=== PATIENT | female | born 1980 | race Asian ===

== ENCOUNTER 2017-02-07 17:35 | Emergency (ER) | payer OTHER ==
[~2017-02-07] VITALS: Ht 170.2 cm; Wt 77.6 kg
[2017-02-07 19:21] LABS: BASOPHIL % 0.6 % (0-2); PLATELET COUNT 238 x10^3mcL (130-400)
[2017-02-07 19:26] LABS: RED CELL DISTRIBUTION WIDTH 14.9 % (11.5-14.5)
[2017-02-07 20:29] VITALS: BP 100/55
== END 2017-02-07 20:29 | disposition home or self-care (01) ==
LOC: ED 17:35
PROVIDERS: Emergency Medicine
DX: O20.0 Threatened abortion (principal); Z3A.01 Less than 8 weeks gestation of pregnancy
CPT/HCPCS: 36415

== ENCOUNTER 2017-02-09 09:28 | Emergency (ER) | payer OTHER ==
[2017-02-09 12:54] VITALS: BP 109/71
== END 2017-02-09 12:54 | disposition home or self-care (01) ==
LOC: ED 09:28
DX: O20.0 Threatened abortion (principal); Z3A.01 Less than 8 weeks gestation of pregnancy

== ENCOUNTER 2017-04-30 02:56 | Emergency (ER) | payer OTHER ==
[2017-04-30 03:23] LABS: microscopic required? NO
[2017-04-30 03:38] LABS: urine erythrocyte NEGATIVE (NEGATIVE)
[2017-04-30 04:25] VITALS: BP 115/75
== END 2017-04-30 04:25 | disposition home or self-care (01) ==
LOC: ED 02:56
PROVIDERS: Emergency Medicine
DX: O26.892 Other specified pregnancy related conditions, second trimester (principal); R10.2 Pelvic and perineal pain; Z3A.18 18 weeks gestation of pregnancy
CPT/HCPCS: Q0092

== ENCOUNTER 2017-05-05 21:45 | Emergency (ER) | payer OTHER ==
[2017-05-05 22:40] LABS: BASOPHIL % 0.5 % (0-2); PLATELET COUNT 249 x10^3mcL (130-400)
[2017-05-05 22:44] LABS: RED CELL DISTRIBUTION WIDTH 14.7 % (11.5-14.5)
[2017-05-05 22:46] LABS: CALCIUM 8.5 mg/dL (8.5-10.1); CARBON DIOXIDE 22.5 mmol/L (21-32); CHLORIDE SERUM 102 mmol/L (98-107); CREATININE SERUM 0.6 mg/dL (0.6-1.0); GFR1 > 60 mL/min; GLUCOSE SERUM 96 mg/dL (74-106); POTASSIUM SERUM 3.2 mmol/L (3.5-5.1); SODIUM SERUM 137 mmol/L (136-145)
[2017-05-05 22:51] LABS: AMPHETAMINE QUAL UR NONE DETECTED (NEG <=1000)
[2017-05-05 22:54] LABS: ALKALINE PHOSPHATASE 51 U/L (46-116); ALT/SGPT 38 U/L (14-59); AST/SGOT 20 U/L (15-37); BILIRUBIN TOTAL 0.2 mg/dL (0.20-1.00); MAGNESIUM 2.1 mg/dL (1.8-2.4); TOTAL PROTEIN, SERUM 7.1 g/dL (6.4-8.2)
[2017-05-05 22:55] LABS: ALBUMIN 3.1 g/dL (3.4-5.0)
[2017-05-05 23:02] LABS: T3 TOTAL 1.83 ng/mL
[2017-05-05 23:16] LABS: FREE T4 1.09 ng/dL (0.76-1.46)
[2017-05-05 23:19] LABS: FREE THYROXINE INDEX 3.7 ug/dL (1.4-4.5); T4(THYROXINE) 15.3 ug/dL (4.7-13.3)
[2017-05-06 00:17] VITALS: BP 113/73
== END 2017-05-06 00:17 | disposition home or self-care (01) ==
LOC: ED 21:45
PROVIDERS: Emergency Medicine
DX: O99.282 Endocrine, nutritional and metabolic diseases complicating pregnancy, second trimester (principal); E05.90 Thyrotoxicosis, unspecified without thyrotoxic crisis or storm; Z3A.20 20 weeks gestation of pregnancy
CPT/HCPCS: 83880; 84439; J7030

== ENCOUNTER 2017-05-06 17:26 | Inpatient (IN) | payer OTHER ==
[~2017-05-06] VITALS: Ht 170.2 cm; Wt 78.7 kg
--- NOTE | 2017-05-06 18:01 | NUR ---
Patient came into the ER today with the chief complaint of left sided chest pain and shortness of breath. Patient reports that this chest pain began last night at 2200 [address] brought into [facility] emergency department by ambulance. Patient was seen by Dr. Frost. Dr. Frost recommended a CT pulmonary angiogram. Patient is five months so she decided not to get the CT pulmonary angiogram done. Patient was discharged and since she still continues to have this left-sided chest pain so she returned to the ER to get the CT. The chest pain is not exacerbated upon deep inspiration or palpation. Patient also has a complaint of nausea, vomiting, and diarrhea which began early today. Patient reports more than 10 episodes of emesis. Patient reports seeing bright red blood on the toilet paper when she wipes after having a bowel movement. At this time respirations appear to be unlabored, with equal chest rise, and lung sounds are clear bilaterally to auscultation. Dr. Bustamante at bedside for MSE.
--- NOTE | 2017-05-06 18:03 | NUR ---
GASTON COMPLETED BY DR. AMBRIZ
[2017-05-06 18:51] LABS: BASOPHIL % 0.3 % (0-2); PLATELET COUNT 269 x10^3mcL (130-400)
[2017-05-06 18:57] LABS: CALCIUM 9.1 mg/dL (8.5-10.1); CARBON DIOXIDE 24.2 mmol/L (21-32); CHLORIDE SERUM 108 mmol/L (98-107); CREATININE SERUM 0.5 mg/dL (0.6-1.0); GFR1 > 60 mL/min; GLUCOSE SERUM 109 mg/dL (74-106); POTASSIUM SERUM 3.4 mmol/L (3.5-5.1); SODIUM SERUM 140 mmol/L (136-145)
[2017-05-06 19:00] LABS: RED CELL DISTRIBUTION WIDTH 14.7 % (11.5-14.5)
[2017-05-06 19:01] LABS: ALKALINE PHOSPHATASE 44 U/L (46-116); ALT/SGPT 38 U/L (14-59); AST/SGOT 29 U/L (15-37); BILIRUBIN TOTAL 0.36 mg/dL (0.20-1.00); TOTAL PROTEIN, SERUM 7.1 g/dL (6.4-8.2)
[2017-05-06 19:02] LABS: ALBUMIN 3.2 g/dL (3.4-5.0)
--- NOTE | 2017-05-06 19:15 | NUR ---
RECEIVED REPORT FROM JOSEPH PUTNAM.
--- NOTE | 2017-05-06 20:08 | NUR ---
PT OFF OF FLOOR TO CT SCAN VIA WHEELCHAIR.
--- NOTE | 2017-05-06 20:25 | NUR ---
PT BACK FROM CT SCAN.
--- NOTE | 2017-05-06 21:15 | NUR ---
PT GIVEN TYLENOL PO FOR C/O CARDENAS. AT BEDSIDE.
--- NOTE | 2017-05-06 22:28 | NUR ---
REPORT GIVEN TO CARLINE PUTNAM.
--- NOTE | 2017-05-06 22:50 | NUR ---
RECEIVED PT FROM ED VIA [facility], CAME IN DUE TO CHEST PAIN AND VOMITING. AAOX4. C/O 6/10 HEADACHE. NO SOB NOTED. DENIES CHEST PAIN/PRESSURE, SR ON THE MONITOR. C/O 5/10 EPIGASTRIC PAIN. DENIES NAUSEA AT THIS TIME. STATED THAT SHE VOMITED 5-10 EPISODES TODAY AND HAS BEEN HAVING DIARRHEA X2 DAYS. IV SITE PATENT AND INTACT. SIDE RAILS UPX2. CALL LIGHT ON REACH. ENDORSED TO PRIMARY NURSE SANTHOSH FOR CONTINUITY OF CARE.
[2017-05-06 22:59] VITALS: BP 110/78
[2017-05-06 23:00] VITALS: BP 110/78
--- NOTE | 2017-05-07 00:31 | NUR ---
PT C/O SOB, 01/27 NONRADIATING LEFT SIDE CHEST PAIN, AND ABDOMINAL PAIN. 99% RA. PRN NORCO 7.5 MG PO GIVEN. IV PATENT AND INFUSING WELL. CALL LIGHT WITHIN REACH. WILL CONTINUE TO MONITOR.
--- NOTE | 2017-05-07 02:00 | NUR ---
PT AWAKE AND ALERT. PT STATES FEELING "MUCH BETTER." NO S/S OF RESPIRATORY DISTRESS NOTED. RESTING COMFORTABLY WITH RELAXED FACIAL FEATURES. CALL LIGHT WITHIN REACH. WILL CONTINUE TO MONITOR.
[2017-05-07 03:24] LABS: MAGNESIUM 2.3 mg/dL (1.8-2.4); PHOSPHOROUS 3.1 mg/dL (2.5-4.9)
[2017-05-07 03:25] LABS: CHOLESTEROL/HDL RATIO 2.3
--- NOTE | 2017-05-07 03:52 | NUR ---
PT C/O HEADACHE. DENIES ANY SOB. NO S/S OF RESPIRATORY DISTRESS NOTED ON ROOM AIR. IV PATENT AND INFUSING WELL. PRN TYLENOL 650 MG PO GIVEN. WILL CONTINUE TO MONITOR.
[2017-05-07 05:22] VITALS: BP 98/63
[2017-05-07 06:09] LABS: BASOPHIL % 0.6 % (0-2); PLATELET COUNT 208 x10^3mcL (130-400)
[2017-05-07 06:23] LABS: CALCIUM 8.3 mg/dL (8.5-10.1); CARBON DIOXIDE 23.9 mmol/L (21-32); CHLORIDE SERUM 107 mmol/L (98-107); CREATININE SERUM 0.6 mg/dL (0.6-1.0); GFR1 > 60 mL/min; GLUCOSE SERUM 84 mg/dL (74-106); POTASSIUM SERUM 3.4 mmol/L (3.5-5.1); SODIUM SERUM 137 mmol/L (136-145)
--- NOTE | 2017-05-07 06:38 | NUR ---
PT SLEPT INTERMITTENTLY THROUGHOUT THE NIGHT. AWAKE AND ALERT AT THIS TIME. DENIES ANY PAIN. NO S/S OF DISTRESS NOTED. BREATHING EQUAL AND UNLABORED. DENIES ANY SOB. NO S/S OF RESPIRATORY DISTRESS NOTED ON ROOM AIR. IV PATENT AND INFUSING WELL. CALL LIGHT WITHIN REACH. WILL CONTINUE TO MONITOR.
[2017-05-07 06:41] LABS: FREE T4 1.13 ng/dL (0.76-1.46); FREE THYROXINE INDEX 3.3 ug/dL (1.4-4.5); T4(THYROXINE) 12.8 ug/dL (4.7-13.3)
[2017-05-07 06:55] LABS: T3 TOTAL 1.46 ng/mL
[2017-05-07 07:07] LABS: RED CELL DISTRIBUTION WIDTH 14.9 % (11.5-14.5)
--- NOTE | 2017-05-07 07:37 | NUR ---
PT AWAKE AND ALERT. TEMP 98.7. TELE #16 SINUS RHYTHM RATE 69. DENIES CHEST DISCOMFORT OR SOB. BREATH SOUNDS CLEAR. PULSE OX 98% RA. ABD SOFT, BOWEL TONES PRESENT. LBM LOOSE THIS AM. VOIDING QS. NO EDEMA. PULSES PRESENT. SCD IN PLACE. IV PATENT LAC INFUSING NORMAL SALINE 100CC/HR. AMBULATES WELL TO BATHROOM. PT IS . ULTRASOUND OB ORDERED. NO VAGINAL BLEEDING NOTED. SIDE RAILS UP X2. CALL LIGHT IN REACH.
--- NOTE | 2017-05-07 09:30 | NUR ---
IV SITE SLIGHTLY SWOLLEN, DC CATH TIP INTACT. RESTART #22 ANGIO LEFT WRIST. IVF RESUMED. IV PEPCID GIVEN ORDERED. DR RAYO AND MEDICAL TEAM IN ON ROUNDS. CHARGE AND PRIMARY NURSE PRESENT. DISCUSSED PLAN OF CARE. FOR DISCHARGE HOME TOMORROW IF CONTINUES STABLE. PT VERBALIZED UNDERSTANDING.
[2017-05-07 09:43] VITALS: BP 104/69
--- NOTE | 2017-05-07 10:50 | NUR ---
PT C/O MILD HEADACHE 10/27./ MED WITH TYLENOL 650MG PO ORDERED.
--- NOTE | 2017-05-07 11:30 | NUR ---
REPORTS "HEADACHE BETTER 07/30."
[2017-05-07 14:00] VITALS: BP 102/63
--- NOTE | 2017-05-07 17:10 | NUR ---
PT RESTING. NO C/O CHEST DISCOMFORT. C/O HEADACHE 10/27. REQUESTS TYLENOL. MED WITH TYLENOL 650MG PO ORDERED. ATTEMPT TO ASSESS FHT. UNABLE TO LOCATE, WILL REASSESS AFTER DINNER MEAL. DIET ADVANCED TO REGULAR.
[2017-05-07 18:00] VITALS: BP 103/69
--- NOTE | 2017-05-07 18:45 | NUR ---
PT RESTING. DENIES PAIN. ATTEMPT TO ASSESS FHT, SECOND RN ALSO ASSESSED. UNABLE TO HEAR WITH DOPLER. PT REPORTS "HAS FELT BABY MOVING TODAY." ABD ULTRASOUND ORDERED TO ASSESS FHT. DR ORDERED ADDITIONAL DOSE OF POTASSIUM. PT RECEIVED 40 MEQ THIS AM. CALL TO MD TO VERIFY DOSE. INSTRUCTED WITH NEED FOR STOOL SAMPLE. NO BM SINCE YESTERDAY. CALL LIGHT IN REACH.
--- NOTE | 2017-05-07 19:20 | NUR ---
RECEIVED PT AWAKE AND ALERT. AMBULATED FROM BR BACK TO BED WITH SLOW AND STEADY GAIT. VERBAL WITH CLEAR SPEECH. NO S/S OF RESPIRATORY DISTRESS NOTED ON ROOM AIR. DENIES ANY SOB. DENIES ANY NAUSEA. ON TELE 16, NSR. DENIES ANY CHEST PAIN AT THIS TIME. ABD SOFT AND ROUND. BOWEL SOUNDS ACTIVE. DENIES ANY ABDOMINAL PAIN OR DISCOMFORT. SKIN WARM AND DRY. IV TO LEFT WRIST PATENT AND INTACT. NO S/S OF INFECTION NOTED. NO EDEMA NOTED. NO S/S OF DISTRESS NOTED. RESTING WITH RELAXED FACIAL FEATURES. CALL LIGHT WITHIN REACH. WILL CONTINUE TO MONITOR.
--- NOTE | 2017-05-07 20:30 | NUR ---
DR. LEUNG NOTIFIED OF PT'S CURRENT POTASSIUM LEVEL 3.4. PT RECEIVED KLOR CON 40 MEQ EARLIER THIS MORNING AND HAD ANOTHER KLOR CON 40 MEQ SCHEDULED FOR 1711. PER DR[address] XOCHITL JOHNS TO GIVE AT THIS TIME.
[2017-05-07 21:48] VITALS: BP 92/61
--- NOTE | 2017-05-08 01:02 | NUR ---
PT C/O HEADACHE. PRN TYLENOL 650 MG PO GIVEN. NO S/S OF RESPIRATORY DISTRESS NOTED. CALL LIGHT WITHIN REACH. WILL CONTINUE TO MONITOR.
--- NOTE | 2017-05-08 03:05 | NUR ---
PT RESTING IN BED WITH EYES CLOSED. BREATHING EQUAL AND UNLABORED. NO S/S OF RESPIRATORY DISTRESS NOTED ON ROOM AIR. IV PATENT AND INFUSING WELL. RESTING COMFORTABLY WITH RELAXED FACIAL FEATURES. NO S/S OF DISTRESS NOTED. CALL LIGHT WITHIN REACH. WILL CONTINUE TO MONITOR.
[2017-05-08 05:38] VITALS: BP 96/68
--- NOTE | 2017-05-08 06:15 | NUR ---
PT SLEPT WELL THROUGHOUT THE NIGHT. AWAKE AND ALERT AT THIS TIME. VERBAL WITH CLEAR SPEECH. DENIES ANY PAIN OR DISCOMFORT AT THIS TIME. IV TO LEFT WRIST PATENT AND INTACT. NO S/S OF INFECTION NOTED. NO S/S OF DISTRESS NOTED. CALL LIGHT WITHIN REACH. WILL CONTINUE TO MONITOR.
[2017-05-08 06:46] LABS: BASOPHIL % 0.5 % (0-2); PLATELET COUNT 219 x10^3mcL (130-400)
[2017-05-08 07:25] LABS: RED CELL DISTRIBUTION WIDTH 14.8 % (11.5-14.5)
[2017-05-08 07:42] LABS: CALCIUM 8.4 mg/dL (8.5-10.1); CARBON DIOXIDE 23.2 mmol/L (21-32); CHLORIDE SERUM 106 mmol/L (98-107); CREATININE SERUM 0.6 mg/dL (0.6-1.0); GFR1 > 60 mL/min; GLUCOSE SERUM 75 mg/dL (74-106); MAGNESIUM 1.9 mg/dL (1.8-2.4); PHOSPHOROUS 3.2 mg/dL (2.5-4.9); POTASSIUM SERUM 4.1 mmol/L (3.5-5.1); SODIUM SERUM 137 mmol/L (136-145)
--- NOTE | 2017-05-08 07:42 | NUR ---
RECEIVED PT FROM NIGHT NURSE IN NO ACUTE DISTRESS. RESPIRATIONS EVEN AND UNLABORED ON RA. AAOX4. IVF INFUSING AT BEDSIDE. DENIES CP AT THIS TIME. BED IN LOWEST POSITION. CALL LIGHT WITHIN REACH. WILL CONTINUE TO MONITOR.
[2017-05-08 08:30] VITALS: BP 108/62
[2017-05-08 10:10] VITALS: BP 96/68
--- NOTE | 2017-05-08 12:26 | NUR ---
PT RESTING IN BED IN NO ACUTE DISTRESS. RESPIRATIONS EVEN AND UNLABORED ON RA. IVF INFUSING AT BEDSIDE. DENIES CP. BED IN LOWEST POSITION. CALL LIGHT WITHIN REACH, WILL CONTINUE TO MONITOR.
[2017-05-08] MEDS ORDERED: COLACE100 MG PO (13:40)
[2017-05-08] MEDS ORDERED: PEPCID20 MG PO (13:41)
--- NOTE | 2017-05-08 14:45 | NUR ---
PT D/C TO HOME IN NO ACUTE DISTRESS. RESPIRATIONS EVEN AND UNLABORED ON RA. AAOX4. DENIES CP. PT GIVEN D/C INSTRCUTIONS. GIVEN NEW PRESCRIPTIONS, GIVEN FOLLOW UP APPT. IV D/C INTACT. TELE #16 REMOVED. PT ESCORTED TO LOBBY BY RADHA LOVING.
== END 2017-05-08 14:45 | disposition home or self-care (01) | DRG 781 ==
LOC: ED 17:26 → DU 21:36
PROVIDERS: Emergency Medicine; ADMIT Family Medicine Sports Medicine
DX: O21.1 Hyperemesis gravidarum with metabolic disturbance (principal); O22.42 Hemorrhoids in pregnancy, second trimester; K21.9 Gastro-esophageal reflux disease without esophagitis; O25.12 Malnutrition in pregnancy, second trimester; E78.5 Hyperlipidemia, unspecified; O99.012 Anemia complicating pregnancy, second trimester; Z3A.20 20 weeks gestation of pregnancy
CPT/HCPCS: 83880; 84439; 87046; 87046-59; J2765; J3490; J7030; Q0092; Q9967

== ENCOUNTER 2017-07-02 19:23 | Inpatient (IN) | payer OTHER ==
[~2017-07-02] VITALS: Ht 170.2 cm; Wt 77.6 kg
[~2017-07-02 19:23] MED LIST: COLACE100 MG PO; PEPCID20 MG PO
[2017-07-02 19:37] VITALS: Ht 170.2 cm; Wt 77.6 kg
[2017-07-02 21:02] LABS: BASOPHIL % 0.1 % (0-2); PLATELET COUNT 229 x10^3mcL (130-400); RED CELL DISTRIBUTION WIDTH 14.8 % (11.5-14.5)
[2017-07-02 21:41] LABS: CALCIUM 8.2 mg/dL (8.5-10.1); CARBON DIOXIDE 23.9 mmol/L (21-32); CHLORIDE SERUM 104 mmol/L (98-107); CREATININE SERUM 0.6 mg/dL (0.6-1.0); GFR1 > 60 mL/min; GLUCOSE SERUM 90 mg/dL (74-106); SODIUM SERUM 139 mmol/L (136-145)
[2017-07-02 21:46] LABS: ALKALINE PHOSPHATASE 77 U/L (46-116); ALT/SGPT 35 U/L (14-59); AST/SGOT 25 U/L (15-37); BILIRUBIN TOTAL 0.3 mg/dL (0.20-1.00); TOTAL PROTEIN, SERUM 6.8 g/dL (6.4-8.2)
[2017-07-02 21:47] LABS: ALBUMIN 2.7 g/dL (3.4-5.0)
[2017-07-02 22:44] LABS: microscopic required? NO
[2017-07-02 23:01] LABS: UA SPECIFIC GRAVITY <=1.005 (1.005-1.035); urine erythrocyte NEGATIVE (NEGATIVE)
[2017-07-03] VITALS (7 sets, daily range): BP systolic 99–118; BP diastolic 56–84
[2017-07-03 03:29] LABS: MAGNESIUM 1.9 mg/dL (1.8-2.4); PHOSPHOROUS 2.5 mg/dL (2.5-4.9)
[2017-07-03 03:33] LABS: T3 TOTAL 2.01 ng/mL
[2017-07-03 03:40] LABS: FREE T4 1.2 ng/dL (0.76-1.46)
[2017-07-03 03:44] LABS: FREE THYROXINE INDEX 3.2 ug/dL (1.4-4.5)
[2017-07-04 06:01] VITALS: BP 111/72
[2017-07-04 07:56] LABS: BASOPHIL % 0.4 % (0-2); PLATELET COUNT 210 x10^3mcL (130-400); RED CELL DISTRIBUTION WIDTH 14.9 % (11.5-14.5)
[2017-07-04 08:04] LABS: CALCIUM 8.2 mg/dL (8.5-10.1); CARBON DIOXIDE 22.6 mmol/L (21-32); CHLORIDE SERUM 108 mmol/L (98-107); CREATININE SERUM 0.5 mg/dL (0.6-1.0); GFR1 > 60 mL/min; GLUCOSE SERUM 82 mg/dL (74-106); MAGNESIUM 2.1 mg/dL (1.8-2.4); PHOSPHOROUS 2.7 mg/dL (2.5-4.9); POTASSIUM SERUM 3.5 mmol/L (3.5-5.1); SODIUM SERUM 140 mmol/L (136-145)
[2017-07-04 08:11] LABS: CHOLESTEROL/HDL RATIO 2.4
[2017-07-04 09:19] VITALS: BP 107/63
[2017-07-04] MEDS ORDERED: ZITHROMAX Z-PA250 MG PO (09:27)
[2017-07-04] MEDS ORDERED: LAC PO (09:27)
[2017-07-04] MEDS ORDERED: CEPACOL SORE TH1 LO4 MM (09:27)
[2017-07-04] MEDS ORDERED: ROBDML PO (09:27)
[2017-07-04 13:15] VITALS: BP 114/75
[2017-07-04 16:16] VITALS: BP 114/75
== END 2017-07-04 17:02 | disposition home or self-care (01) | DRG 781 ==
LOC: ED 19:23 → DU 07-03 00:31
PROVIDERS: Emergency Medicine; Student in an Organized Health Care Education/Training Program
DX: O99.512 Diseases of the respiratory system complicating pregnancy, second trimester (principal); J96.01 Acute respiratory failure with hypoxia; E43 Unspecified severe protein-calorie malnutrition; Z3A.27 27 weeks gestation of pregnancy; E87.6 Hypokalemia; J06.9 Acute upper respiratory infection, unspecified; O99.282 Endocrine, nutritional and metabolic diseases complicating pregnancy, second trimester; E83.51 Hypocalcemia; Z68.27 Body mass index [BMI] 27.0-27.9, adult
CPT/HCPCS: 36600; 82962; 83880; 84439; 87804; 94150; J0456; J0696; J2550; J3475; J3490; J7030; J7050; J7620; Q0092; Q0163